=== PATIENT | female | born 1955 | race Caucasian/White ===

== ENCOUNTER 2022-03-20 16:07 | Inpatient (IN) | payer MEDICARE, MEDICAID ==
[~2022-03-20] VITALS: Ht 152.4 cm; Wt 61.1 kg
[2022-03-20] MEDS ORDERED: mag hydrox/Alum hydrox/simeth 30ml oral suspension PO PRN (16:45)
[2022-03-20] MEDS ORDERED: acetaminophen 325mg tablet PO PRN (16:45)
[2022-03-20] MEDS ORDERED: loperamide 2mg capsule PO PRN (16:45)
--- NOTE | 2022-03-20 17:50 | NUR ---
Admit note: PT admitted today from [place] on a 5150 for DTO/GD at 1715. Pt is experiencing a UTI and was not seeking medical care. Client making grandiose statements and homicidal ideation. Pt has unknown mental health history but is on psych medications.
[2022-03-20] MEDS ORDERED: QUET-1 PO (19:30)
[2022-03-20] MEDS ORDERED: BUPR75TA96 PO (19:30)
[2022-03-20] MEDS ORDERED: TRAZ-256 PO (19:30)
[2022-03-20] MEDS ORDERED: RISP2TAB85 PO (19:30)
[2022-03-20] MEDS ORDERED: ALLO100T PO (19:30)
[2022-03-20] MEDS ORDERED: OLAN20TA3 PO (19:30)
[2022-03-20] MEDS ORDERED: LEVO100T PO (19:47)
[2022-03-20 20:00] VITALS: BP 117/55
[2022-03-20] MEDS ORDERED: quetiapine 100mg tablet PO ONE (21:15)
[2022-03-20] MEDS ORDERED: traZODone 50mg tablet PO ONE (21:15)
[2022-03-20] MEDS ORDERED: risperiDONE 2mg tablet PO ONE (21:15)
[2022-03-20] MEDS ORDERED: olanzapine 10mg tablet PO ONE ×2 (21:15→21:40)
[2022-03-20] MEDS ORDERED: BUPR-317 PO (21:22)
[2022-03-20 21:57] VITALS: BP 117/55
[2022-03-20] MEDS: acetaminophen 325mg tablet PO PRN (23:59)
--- NOTE | 2022-03-21 04:16 | NUR ---
Nursing Progress Note Problem: PT admitted today from [place] on a 5150 for DTO/GD at 1715. Pt is experiencing a UTI and was not seeking medical care. Client making grandiose statements and homicidal ideation. Pt has unknown mental health history but is on psych medications. Intervention: Maintained a safe and supportive environment, administered scheduled and PRN medications. Provided clear and simple instructions, encouraged going to group, provided active listening and positive encouragement, encouraged participation on the unit, provided redirection and clear boundaries. Response: PT presents with pressured speech and grandiose delusions. She claims to be Marlena and Kalani of [facility]. She states she talks to [employer] and lives in a haunted brothel. She is a very poor historian and denies any medical history aside from Bipolar d/o. She demands vegan tyler and anup cherries. She also tries to have staff do things like put pillows between her legs and make her bed and help her pull her pants up. RN refuses to do these things because pt is perfectly capable and encourages pt to be independent. Pt takes HS medications without issue. She approaches the nurses station frequently with requests and demands. PT needs to be reminded of boundaries and has to be told many times to return to her room late in the night. She becomes labile when she does not have her needs met. Plan: Pt. requires crisis stabilization. pt. continues to require a safe and supportive environment
[2022-03-21] MEDS ORDERED: buproprion 150mg XL (24-hour) tablet PO SCH (08:00)
[2022-03-21] MEDS: levoTHYROXINE 100mcg tablet PO SCH (08:03)
[2022-03-21] MEDS: buPROPion SR 150mg tablet PO SCH (08:03)
[2022-03-21] MEDS: allopurinol 100mg tablet PO SCH (08:03)
[2022-03-21 08:31] VITALS: BP 135/80
[2022-03-21 09:04] LABS: CHOL/HDL RATIO 2.2 (0.00-4.99); CHOLESTEROL 181 MG/DL (0-200); HDL CHOLESTEROL 82 MG/DL (35-60); LDL CHOLESTEROL 85 MG/DL (50-100); TRIGLYCERIDES 50 MG/DL (20-135)
[2022-03-21 09:34] LABS: HEMOGLOBIN A1C 5.5 % (4.5-6.2)
--- NOTE | 2022-03-21 11:47 | NUR ---
[id number]# [phone]
[2022-03-21] MEDS ORDERED: OLANZapine 5mg rapidly disint. tablet PO ONE ×2 (12:30→15:10)
--- NOTE | 2022-03-21 16:04 | NUR ---
Nursing Progress Note: Saritha Problem: PT admitted from [place] on a 5150 for DTO/GD. Pt is experiencing a UTI and was not seeking medical care. Client making grandiose statements and homicidal ideation. Pt has unknown mental health history but is on psych medications. Intervention: Medication given as ordered. Provided with a safe and therapeutic environment, clear communication, active listening and positive encouragement. Response: Patient is resting quietly in bed at the start of the shift. Cooperative with assessment and medication. Patients speech is disorganized and inappropriate. Appears to be oriented to self only. Responses to questions are inappropriate and often threatening. She states, Want me to kill myself? Ill kill myself. Ill fuck you up you mother fuckers. Patient spends most of the day in common areas. Takes a shower but requires encouragement to complete the task. She sits on the shower room toilet for a long period of time and presses the call light several times. When the shower call light is answered the patient swears at staff and states repeatedly, You want me to kill myself?! Plan: Patient continues to require crisis interruption and stabilization with medication management and monitoring in a safe and therapeutic environment.
[2022-03-21] MEDS: divalproex sodium 500mg tablet.DR PO SCH (17:12)
[2022-03-21] MEDS: haloperidol 5mg tablet PO SCH ×2 (17:13→20:29)
[2022-03-21 19:00] VITALS: BP 107/76
[2022-03-21] MEDS: LORazepam 1 MG tablet PO PRN (20:29)
[2022-03-21] MEDS: risperiDONE 2mg tablet PO SCH (20:29)
[2022-03-21] MEDS: acetaminophen 325mg tablet PO PRN (20:29)
[2022-03-21] MEDS: quetiapine 100mg tablet PO SCH (20:29)
[2022-03-21] MEDS: olanzapine 10mg tablet PO SCH (20:30)
[2022-03-21] MEDS: traZODone 50mg tablet PO SCH (20:30)
--- NOTE | 2022-03-21 21:13 | NUR ---
Nursing Progress Note: Saritha Problem: PT admitted from [place] on a 5150 for DTO/GD. Pt is experiencing a UTI and was not seeking medical care. Client making grandiose statements and homicidal ideation. Pt has unknown mental health history but is on psych medications. Intervention: Medication given as ordered. Provided with a safe and therapeutic environment, clear communication, active listening and positive encouragement. Response: Patient is walking the unit at the start of the shift. Cooperative with medications but is resistive to 1:1 assessment. She is tangential, hyper verbal and verbally abusive towards staff and peers. She is also noted talking to herself. She requires frequent redirection as she is intrusive and hyper verbal. She states, The staff here made me psychotic! and To say my life is shitty is an understatement! Im gonna fuck you all up mother fuckers! PRN Ativan is helpful for anxiety. PRN Tylenol given for c/o BLE pain with good effect. Patient spends time watching TV and socializing in the community room. Plan: Patient continues to require crisis interruption and stabilization with medication management and monitoring in a safe and therapeutic environment.
[2022-03-22] MEDS: haloperidol 5mg tablet PO SCH ×4 (02:00→20:22)
[2022-03-22 08:00] VITALS: BP 93/58
[2022-03-22] MEDS: allopurinol 100mg tablet PO SCH (08:30)
[2022-03-22] MEDS: divalproex sodium 500mg tablet.DR PO SCH ×3 (08:30→17:58)
[2022-03-22] MEDS: buPROPion SR 150mg tablet PO SCH (08:30)
[2022-03-22] MEDS: levoTHYROXINE 100mcg tablet PO SCH (08:30)
--- NOTE | 2022-03-22 17:52 | NUR ---
Nursing Progress Note Problem: PT admitted from [place] on a 5150 for DTO/GD. Pt is experiencing a UTI and was not seeking medical care. Client making grandiose statements and homicidal ideation. Pt has unknown mental health history but is on psych medications. Intervention: Medication given as ordered. Maintained a safe and supportive environment, administered scheduled and PRN medications. Provided clear and simple instructions, encouraged going to group, provided active listening and positive encouragement, encouraged participation on the unit, provided redirection and clear boundaries. Response: Received Pt in bed sleeping deeply w/o distress at the beginning of this shift. Pt woke for vitals and breakfast. AM assessments completed in community room where Pt stayed after breakfast. Pt ate meals well. She took AM meds w/o issue and also took a shower in AM. Pt often has pressured speech and speaks of hospital she was previously is as starving her; c/o gout and states she wants to shoot in penis then heart and then head. Pt presents as angry, anxious, needy and complaining, yet responds well to attention and stops complaining. Pt dressed in own clothes and well groomed. Plan: Patient continues to require crisis interruption and stabilization with medication management and monitoring in a safe and therapeutic environment.
[2022-03-22 19:00] VITALS: BP 120/71
[2022-03-22] MEDS: traZODone 50mg tablet PO SCH (20:22)
[2022-03-22] MEDS: risperiDONE 2mg tablet PO SCH (20:22)
[2022-03-22] MEDS: LORazepam 1 MG tablet PO PRN (20:22)
[2022-03-22] MEDS: olanzapine 10mg tablet PO SCH (20:22)
[2022-03-22] MEDS: quetiapine 100mg tablet PO SCH (20:22)
[2022-03-23] MEDS: haloperidol 5mg tablet PO SCH ×4 (02:00→21:01)
[2022-03-23] MEDS: LORazepam 1 MG tablet PO PRN ×2 (02:00→21:01)
--- NOTE | 2022-03-23 04:27 | NUR ---
Nursing Progress Note Problem: PT admitted from [place] on a 5150 for DTO/GD. Pt is experiencing a UTI and was not seeking medical care. Client making grandiose statements and homicidal ideation. Pt has unknown mental health history but is on psych medications. Intervention: Medication given as ordered. Maintained a safe and supportive environment, administered scheduled and PRN medications. Provided clear and simple instructions, encouraged going to group, provided active listening and positive encouragement, encouraged participation on the unit, provided redirection and clear boundaries. Response: Patient is labile throughout this shift; compliant with medication. She presented disorganized and delusional thought content. She made claims that she went to [place] with report writer, she has a "raging eye infection," and continued "staff is making me psychotic and I don't need any help with that." PRN Ativan provided x2 this shift. Patient was incontinent of urine while asleep; she was cleaned up with staff assistance and able to go back to sleep; does not appear to be having difficulty at this time. Plan: Patient continues to require crisis interruption and stabilization with medication management and monitoring in a safe and therapeutic environment.
[2022-03-23 08:00] VITALS: BP 111/57
[2022-03-23] MEDS: buPROPion SR 150mg tablet PO SCH (08:44)
[2022-03-23] MEDS: levoTHYROXINE 100mcg tablet PO SCH (08:44)
[2022-03-23] MEDS: allopurinol 100mg tablet PO SCH (08:44)
[2022-03-23] MEDS: divalproex sodium 500mg tablet.DR PO SCH (08:44)
--- NOTE | 2022-03-23 17:44 | NUR ---
Nursing Progress Note Problem: PT admitted from [place] on a 5150 for DTO/GD. Pt is experiencing a UTI and was not seeking medical care. Client making grandiose statements and homicidal ideation. Pt has unknown mental health history but is on psych medications. Intervention: Medication given as ordered. Maintained a safe and supportive environment, administered scheduled and PRN medications. Provided clear and simple instructions, encouraged going to group, provided active listening and positive encouragement, encouraged participation on the unit, provided redirection and clear boundaries. Response: Received Pt in bed sleeping deeply w/o distress at the beginning of this shift. Pt woke and was cooperative with vitals and AM assessments, and she ate meals well. Pt takes a long time to finish meals. She continues to ask for a FWW and is rude and vulgar when she doesnt get her way. Pt demanding and refused afternoon meds. Helped Pt position chair in room so she can put her feet up. She listened to headphones in afternoon. She remains demanding and argumentative. Pt makes statements about her functioning and things she will do and has done, that seem grandiose. Plan: Patient continues to require crisis interruption and stabilization with medication management and monitoring in a safe and therapeutic environment.
[2022-03-23] MEDS: divalproex sod 125mg sprinkle cap PO SCH (17:53)
[2022-03-23 19:00] VITALS: BP 152/79
[2022-03-23] MEDS: olanzapine 10mg tablet PO SCH (21:00)
[2022-03-23] MEDS: quetiapine 100mg tablet PO SCH (21:01)
[2022-03-23] MEDS: traZODone 50mg tablet PO SCH (21:01)
[2022-03-24] MEDS: haloperidol 5mg tablet PO SCH ×4 (03:00→20:17)
[2022-03-24] MEDS: LORazepam 1 MG tablet PO PRN ×2 (03:00→20:17)
--- NOTE | 2022-03-24 05:22 | NUR ---
Nursing Progress Note Problem: PT admitted from [place] on a 5150 for DTO/GD. Pt is experiencing a UTI and was not seeking medical care. Client making grandiose statements and homicidal ideation. Pt has unknown mental health history but is on psych medications. Intervention: Medication given as ordered. Maintained a safe and supportive environment, administered scheduled and PRN medications. Provided clear and simple instructions, encouraged going to group, provided active listening and positive encouragement, encouraged participation on the unit, provided redirection and clear boundaries. Response: Patient remains labile; compliant with medication. She continues to argue and demand when she is not getting her way. Patient continues to express delusional thought content. Her train of thought remains difficult to follow at times. Patient is insistent that she is "going to [facility] first thing in the morning" and refuses to accept that she is on a legal hold. Patient was social with peers and participated in HS snack prior to bed; observed having difficulty getting to sleep and continues to wake up often. She was incontinent while sleeping and claims to need a commode; again patient refused to listen to any reasoning. Plan: Patient continues to require crisis interruption and stabilization with medication management and monitoring in a safe and therapeutic environment.
--- NOTE | 2022-03-24 07:00 | NUR ---
PT. REFUSED VITAL SIGNS ASSESSMENT.
--- NOTE | 2022-03-24 07:27 | NUR ---
Initial: pt admitted w/ bipolar disorder per EMR. Currently on Regular diet w/ 100% intake of meals and participates in snacks per documentation, overall meeting needs at this time. LBM 03/21. No nutrition intervention implemented at this time, will continue to monitor. Recs: 1. Continue Regular diet as tolerated 2. Bowel care per rx 3. Weekly wts Addendum: 03/24/22 at [address] Amended: Links added.
[2022-03-24] MEDS: levoTHYROXINE 100mcg tablet PO SCH (07:57)
[2022-03-24] MEDS: allopurinol 100mg tablet PO SCH (07:57)
[2022-03-24] MEDS: divalproex sod 125mg sprinkle cap PO SCH ×3 (07:58→17:39)
[2022-03-24] MEDS: buPROPion SR 150mg tablet PO SCH (08:00)
[2022-03-24] MEDS: magnesium hydroxide 30ml (MOM) UD suspension PO PRN (09:49)
[2022-03-24] MEDS: acetaminophen 325mg tablet PO PRN (13:30)
--- NOTE | 2022-03-24 14:38 | NUR ---
[address] [place]
[2022-03-24] MEDS: ibuprofen tablet 400 MG TABLET PO PRN (16:04)
--- NOTE | 2022-03-24 17:25 | NUR ---
Nursing Progress Note Problem: PT admitted from [place] on a 5150 for DTO/GD. Pt is experiencing a UTI and was not seeking medical care. Client making grandiose statements and homicidal ideation. Pt has unknown mental health history but is on psych medications. Problems today: 1.Pt. is delusional, pt. states, Vidya been impregnated by a [employer] flatbed truck driver. Pt. believes she is a Buddhist goddess. Pt. states, I can bring the wrath and destruction upon you. 2.Pt. is irritable when she does not immediately get what she wants. Pt. presses the call light multiple times to request juice. When encouraged to drink water pt. states, No, water is boring. 3.Pt. c/o of bilateral LE pain and given Ibuprofen 800mg with moderate effect. Intervention: Medication given as ordered. Maintained a safe and supportive environment, administered scheduled and PRN medications. Provided clear and simple instructions, encouraged going to group, provided active listening and positive encouragement, encouraged participation on the unit, provided redirection and clear boundaries. RN received order for Motrin 800mg po q 6hr and medication administered. Pt. encouraged to shower. Response: RN received pt. asleep in bed at start of shift. Pt. awoke for breakfast and took all medications and ate all meals in the community room. 1:1 done at bedside, pt. is hyperverbal with pressured speech. Pt. is grandiose and tangential, talking at length about being a Buddhist goddess as well as believing she is . Pt. isolated to her room but came out to watch TV in the Rec Room intermittently. Ibuprofen and tylenol had moderate effect for bilateral LE pain. Pt. showered. Plan: Patient continues to require crisis interruption and stabilization with medication management and monitoring in a safe and therapeutic environment.
[2022-03-24 19:19] VITALS: BP 147/87
[2022-03-24] MEDS: polyethylene glycol 3350 17gm powd pack PO SCH (20:16)
[2022-03-24] MEDS: traZODone 50mg tablet PO SCH (20:17)
[2022-03-24] MEDS: quetiapine 100mg tablet PO SCH (20:17)
[2022-03-24] MEDS: olanzapine 10mg tablet PO SCH (20:17)
[2022-03-25] MEDS: haloperidol 5mg tablet PO SCH ×4 (03:11→20:37)
[2022-03-25] MEDS: LORazepam 1 MG tablet PO PRN ×2 (03:11→23:15)
[2022-03-25] MEDS: ibuprofen tablet 400 MG TABLET PO PRN ×3 (03:12→21:25)
--- NOTE | 2022-03-25 03:54 | NUR ---
Pt came up the nursing station and stated she needed a PRN for pain and needed her acyclovir, her nurse gave her Motrin for "all over" body pain, she has no acyclovir ordered, but she stated "When I get under stress I have herpes outbreaks! And I am under stress right now!" She also stated " I am burning all the way to my sacrum!" Will pass on to dayshift to notify MD of possible need for treatment.
--- NOTE | 2022-03-25 05:18 | NUR ---
Nursing Progress Note Problem: PT admitted from [place] on a 5150 for DTO/GD. Pt is experiencing a UTI and was not seeking medical care. Client making grandiose statements and homicidal ideation. Pt has unknown mental health history but is on psych medications. Intervention: Medication given as ordered. Maintained a safe and supportive environment, administered scheduled and PRN medications. Provided clear and simple instructions, encouraged going to group, provided active listening and positive encouragement, encouraged participation on the unit, provided redirection and clear boundaries. Response: Patient remains labile; compliant with medication. PRN Ativan and Motrin provided. Patient continues to express disorganized and delusional thought content. She was observed singing along to a game show with peers and participated in HS snack. Patient continues to appear having a difficulty getting to sleep and waking often. Plan: Patient continues to require crisis interruption and stabilization with medication management and monitoring in a safe and therapeutic environment.
[2022-03-25 07:30] VITALS: BP 116/64
[2022-03-25] MEDS: buPROPion SR 150mg tablet PO SCH (08:00)
[2022-03-25] MEDS: allopurinol 100mg tablet PO SCH (08:52)
[2022-03-25] MEDS: divalproex sod 125mg sprinkle cap PO SCH ×3 (08:52→17:48)
[2022-03-25] MEDS: levoTHYROXINE 100mcg tablet PO SCH (08:52)
[2022-03-25] MEDS: magnesium hydroxide 30ml (MOM) UD suspension PO PRN (10:46)
--- NOTE | 2022-03-25 17:40 | NUR ---
Nursing Progress Note: Problem: PT admitted from [place] on a 5150 for DTO/GD. Pt is experiencing a UTI and was not seeking medical care. Client making grandiose statements and homicidal ideation. Pt has unknown mental health history but is on psych medications. Problems today: 1.Pt. is delusional, pt. states, Im . 3.Pt. c/o of bilateral LE pain and given Ibuprofen 800mg with moderate effect. Intervention: Medication given as ordered. Maintained a safe and supportive environment, administered scheduled and PRN medications. Provided clear and simple instructions, encouraged going to group, provided active listening and positive encouragement, encouraged participation on the unit, provided redirection and clear boundaries. RN received order for Motrin 800mg po q 6hr and medication administered. Response: RN received pt. asleep in bed at start of shift. Pt. awoke for breakfast and took all medications and ate all meals in the community room. Pt. observed eating peas with her fingers, RN encouraged pt. to use her spoon, pt. states, Ill eat how I want to eat. Pt. leaves mess on the table and does not clean it up. 1:1 done at bedside, pt. is hyperverbal with pressured speech, states, I dont need to be here. Pt. becomes tangential, talking about using healing mas of thinking to heal herself. Pt. received Ibuprofen 800mg with good effect for bilateral LE pain. Pt. napped approx 1.5 hrs in the afternoon. Pt. changed her clothes, brushed her teeth, and washed her face in her bathroom. Pt. had less outbursts today. Plan: Patient continues to require crisis interruption and stabilization with medication management and monitoring in a safe and therapeutic environment.
[2022-03-25 19:17] VITALS: BP 132/62
[2022-03-25] MEDS: olanzapine 10mg tablet PO SCH (20:37)
[2022-03-25] MEDS: traZODone 50mg tablet PO SCH (20:37)
[2022-03-25] MEDS: polyethylene glycol 3350 17gm powd pack PO SCH (20:37)
[2022-03-26] MEDS: haloperidol 5mg tablet PO SCH ×4 (02:21→20:27)
--- NOTE | 2022-03-26 04:45 | NUR ---
Nursing Progress Note Problem: PT admitted from [place] on a 5150 for DTO/GD. Pt is experiencing a UTI and was not seeking medical care. Client making grandiose statements and homicidal ideation. Pt has unknown mental health history but is on psych medications. Intervention: Medication given as ordered. Maintained a safe and supportive environment, administered scheduled and PRN medications. Provided clear and simple instructions, encouraged going to group, provided active listening and positive encouragement, encouraged participation on the unit, provided redirection and clear boundaries. Response: Patient continues to present lability and disorganized delusions. She is compliant with medication. PRN Ativan and Motrin provided this shift. Patient c/o increased gout pain throughout the shift. She participated in HS snack and observed watching TV with peer prior to bed. Shortly after retiring to bed she was yelling non stop in her room and was moved closer to the nurse's station and into a medical bed. Patient observed having difficulty getting to sleep and constantly waking; she was on the call light frequently requesting help with drinking water. Stated, "I need to flush all the toxins out of my body." Plan: Patient continues to require crisis interruption and stabilization with medication management and monitoring in a safe and therapeutic environment.
[2022-03-26] MEDS: allopurinol 100mg tablet PO SCH (07:27)
[2022-03-26] MEDS: buPROPion SR 150mg tablet PO SCH (07:27)
[2022-03-26] MEDS: levoTHYROXINE 100mcg tablet PO SCH (07:27)
[2022-03-26] MEDS: divalproex sod 125mg sprinkle cap PO SCH ×3 (07:32→17:48)
[2022-03-26 07:37] VITALS: BP 111/60
[2022-03-26 07:41] LABS: BASOPHILS # (AUTO) 0.1 X10'3 (0-0.2); EOSINOPHILS # (AUTO) 0.1 X10'3 (0-0.9); EOSINOPHILS % (AUTO) 1.9 % (0-6); HEMATOCRIT 33.2 % (35.0-45.0); HEMOGLOBIN 11.1 g/dl (12.0-16.0); LYMPHOCYTES # (AUTO) 2.7 X10'3 (1.1-4.8); LYMPHOCYTES % (AUTO) 49.4 % (21-51); MEAN CORPUSCULAR HEMOGLOBIN 32.3 PG (27.0-31.0); MEAN CORPUSCULAR HGB CONC 33.6 g/dL (33.0-36.5); MEAN CORPUSCULAR VOLUME 96.2 FL (78-98); MEAN PLATELET VOLUME 8.1 FL (7.4-10.4); MONOCYTES # (AUTO) 0.5 X10'3 (0-0.9); NEUTROPHILS # (AUTO) 2.1 X10'3 (1.8-7.7); NEUTROPHILS % (AUTO) 37.7 % (42-75); PLATELET COUNT 317 X10'3 (140-440); RED BLOOD COUNT 3.46 X10'6 (4.20-5.60); RED CELL DISTRIBUTION WIDTH 13.7 % (11.5-14.5); WHITE BLOOD COUNT 5.5 X10'3 (4.5-11.0)
[2022-03-26 07:48] LABS: ALANINE AMINOTRANSFERASE 27 U/L (12-78); ALBUMIN/GLOBULIN RATIO 0.8 (1.1-1.5); ALKALINE PHOSPHATASE 58 IU/L (46-116); ANION GAP 8 (8-16); ASPARTATE AMINO TRANSFERASE 22 U/L (10-37); BILIRUBIN,TOTAL 0.1 MG/DL (0.1-1.0); BLOOD UREA NITROGEN 20 MG/DL (7-18); BUN/CREATININE RATIO 27.8 (6.6-38.0); CALCIUM 8.7 MG/DL (8.5-10.1); CHLORIDE 103 MMOL/L (99-107); CREATININE 0.72 MG/DL (0.40-0.90); GLUCOSE 88 MG/DL (70-104); POTASSIUM 4.9 MMOL/L (3.5-5.1); SODIUM 138 MMOL/L (135-145); TOTAL CARBON DIOXIDE 26.9 MMOL/L (24-32); TOTAL PROTEIN 6.8 G/DL (6.4-8.2); eGFR 81 ML/MIN
[2022-03-26 07:59] LABS: VALPROATE 48 UG/ML (50-100)
[2022-03-26] MEDS: ibuprofen tablet 400 MG TABLET PO PRN (09:00)
--- NOTE | 2022-03-26 10:20 | NUR ---
Pt.'s TSH increased to 83.85. RN received order to increase Synthroid to 125mcg and retest in 6 weeks. (May 07, 2022).
--- NOTE | 2022-03-26 14:10 | NUR ---
Pt. c/o of continued constipation. RN received order for Colace 100mg BID with now dose. Pt. received and awaiting effect.
[2022-03-26] MEDS ORDERED: docusate sod 100mg capsule PO ONE (14:30)
--- NOTE | 2022-03-26 17:42 | NUR ---
Nursing Progress Note: Problem: PT admitted from [place] on a 5150 for DTO/GD. Pt is experiencing a UTI and was not seeking medical care. Client making grandiose statements and homicidal ideation. Pt has unknown mental health history but is on psych medications. Problems today: 1.Pt. is delusional, pt. states, Im . 2.Pt.'s TSH increased to 83.85. RN received order to increase Synthroid to 125mcg and retest in 6 weeks. (May 07, 2022). Intervention: Medication given as ordered. Maintained a safe and supportive environment, administered scheduled and PRN medications. Provided clear and simple instructions, encouraged going to group, provided active listening and positive encouragement, encouraged participation on the unit, provided redirection and clear boundaries. Pt. given Motrin 800mg po x1 for bilateral lower extremity pain. Response: RN received pt. asleep in bed at start of shift. Pt. awoke prior to breakfast and took all medications without issue. 1:1 done in Rec Room, pt. is hyperverbal and delusional, states, You know Im right?. Pt. is difficult to understand as she is tangential and mumbles. Pt. napped approx 2 hours during the day. Pt. brushed her teeth, and washed her face in her bathroom. Pt. had no episodes of acting out. Plan: Patient continues to require crisis interruption and stabilization with medication management and monitoring in a safe and therapeutic environment. Addendum: 03/26/22 at 1819 by Espinoza Germain RN Pt.'s swelling in left foot appears to be improving. Skin is less shiny. Addendum: 03/26/22 at 1820 by Espinoza Germain RN CORRECTION: RIGHT foot swelling appears to be improving.
[2022-03-26 19:25] VITALS: BP 146/82
[2022-03-26 19:28] VITALS: BP 141/78
[2022-03-26 20:25] LABS: CLARITY,URINE CLEAR (Clear); GLUCOSE, URINE NEGATIVE (Neg); KETONES,URINE NEGATIVE (Neg); LEUKOCYTE ESTERASE ,URINE TRACE (Neg); NITRITES, URINE NEGATIVE (Neg); OCCULT BLOOD,URINE NEGATIVE (Neg); PH,URINE 6.5 (4.8-8.0); PROTEIN,URINE NEGATIVE (Neg); UROBILINOGEN,URINE 0.2 E.U/dL (0.2-1.0)
[2022-03-26] MEDS: polyethylene glycol 3350 17gm powd pack PO SCH (20:26)
[2022-03-26 20:27] LABS: COLOR,URINE Straw (Yellow); UA COLLECTION TYPE CLN CATCH MIDSTREAM
[2022-03-26] MEDS: olanzapine 10mg tablet PO SCH (20:27)
[2022-03-26] MEDS: docusate sod 100mg capsule PO SCH (20:27)
[2022-03-26] MEDS: traZODone 50mg tablet PO SCH (20:28)
[2022-03-26] MEDS: LORazepam 1 MG tablet PO PRN (20:28)
[2022-03-26 20:31] LABS: WBC,URINE 0-4 /HPF (0-4)
[2022-03-26 20:32] LABS: BACTERIA,URINE 1+ /HPF (Neg); RBC,URINE 0-2 /HPF (0-2); SQUAMOUS EPITHELIAL CELL,UR NONE SEEN /LPF (FEW)
[2022-03-27] MEDS: haloperidol 5mg tablet PO SCH ×4 (02:16→20:31)
--- NOTE | 2022-03-27 04:43 | NUR ---
Nursing Progress Note Problem: PT admitted from [place] on a 5150 for DTO/GD. Pt is experiencing a UTI and was not seeking medical care. Client making grandiose statements and homicidal ideation. Pt has unknown mental health history but is on psych medications. Intervention: Medication given as ordered. Maintained a safe and supportive environment, administered scheduled and PRN medications. Provided clear and simple instructions, encouraged going to group, provided active listening and positive encouragement, encouraged participation on the unit, provided redirection and clear boundaries. Response: Patient continues to present labile but some improvement noted; compliant with medication. PRN Ativan provided. Patient continues to express delusional and disorganized thoughts; she believes she is and does not accept reality orientation as she continues into the next delusion. UA as ordered this shift; while blurb writer was instructing patient it was apparent that she wiping fecal matter toward her vagina. Patient appears to have difficulty with the ROM required to wipe from the backside after a BM. A clean cath was received and a culture is indicated for trace Esterase and bacteria in her urine. Patient participated in HS snack prior to bed; Trazodone was increased to 200mg this shift and patient is observed sleeping with less interruption this shift. Plan: Patient continues to require crisis interruption and stabilization with medication management and monitoring in a safe and therapeutic environment.
[2022-03-27] MEDS: levoTHYROXINE 125mcg tablet PO SCH (07:22)
[2022-03-27] MEDS: docusate sod 100mg capsule PO SCH ×2 (07:40→20:31)
[2022-03-27] MEDS: divalproex sod 125mg sprinkle cap PO SCH ×3 (07:41→17:26)
[2022-03-27] MEDS: allopurinol 100mg tablet PO SCH (07:41)
[2022-03-27] MEDS: buPROPion SR 150mg tablet PO SCH ×2 (07:41→15:58)
[2022-03-27 08:12] VITALS: BP 126/79
--- NOTE | 2022-03-27 16:22 | NUR ---
Nursing Progress Note: Problem: PT admitted from [place] on a 5150 for DTO/GD. Pt is experiencing a UTI and was not seeking medical care. Client making grandiose statements and homicidal ideation. Pt has unknown mental health history but is on psych medications. Intervention: Medication given as ordered. Maintained a safe and supportive environment, administered scheduled and PRN medications. Provided clear and simple instructions, encouraged going to group, provided active listening and positive encouragement, encouraged participation on the unit, provided redirection and clear boundaries. Response: Patient observed sleeping at shift change. She soon woke up and was asking for facial cream and lip balm. She was happy with moisturizer. Patient has been calm and cooperative all day, and has been compliant with all medications. She remains delusional and makes grandiose statements that have no basis in reality. Patient napped on and off all day and watched tv in between. Plan: Patient continues to require crisis interruption and stabilization with medication management and monitoring in a safe and therapeutic environment.
[2022-03-27 19:39] VITALS: BP 144/75
[2022-03-27] MEDS: olanzapine 10mg tablet PO SCH (20:29)
[2022-03-27] MEDS: polyethylene glycol 3350 17gm powd pack PO SCH (20:29)
[2022-03-27] MEDS: LORazepam 1 MG tablet PO PRN (20:31)
[2022-03-27] MEDS: traZODone 50mg tablet PO SCH (20:31)
[2022-03-27] MEDS ORDERED: polyethylene glycol 3350 17gm powd pack PO SCH (21:00)
[2022-03-27] MEDS: ibuprofen tablet 400 MG TABLET PO PRN (23:56)
[2022-03-27] MEDS: olanzapine 10mg tablet PO PRN (23:56)
[2022-03-28] MEDS: haloperidol 5mg tablet PO SCH ×4 (02:15→20:26)
[2022-03-28] MEDS: LORazepam 1 MG tablet PO PRN ×2 (02:15→20:26)
--- NOTE | 2022-03-28 05:17 | NUR ---
Nursing Progress Note Problem: PT admitted from [place] on a 5150 for DTO/GD. Pt is experiencing a UTI and was not seeking medical care. Client making grandiose statements and homicidal ideation. Pt has unknown mental health history but is on psych medications. Intervention: Medication given as ordered. Maintained a safe and supportive environment, administered scheduled and PRN medications. Provided clear and simple instructions, encouraged going to group, provided active listening and positive encouragement, encouraged participation on the unit, provided redirection and clear boundaries. Response: Patient remains labile but mood appears to be slightly improving; compliant with medication. PRN Ativan, Zyprexa and Motrin provided. Patient continues to remain delusional and disorganized. She is social with peers and staff. Participated in HS snack prior to bed; observed sleeping and continues to wake up often waking up every 5-10 min. Plan: Patient continues to require crisis interruption and stabilization with medication management and monitoring in a safe and therapeutic environment.
[2022-03-28] MEDS: allopurinol 100mg tablet PO SCH (07:10)
[2022-03-28] MEDS: levoTHYROXINE 125mcg tablet PO SCH (07:11)
[2022-03-28] MEDS: buPROPion SR 150mg tablet PO SCH ×2 (07:11→14:10)
[2022-03-28] MEDS: docusate sod 100mg capsule PO SCH ×2 (07:11→20:26)
[2022-03-28] MEDS: divalproex sod 125mg sprinkle cap PO SCH ×3 (07:11→17:19)
[2022-03-28 08:16] VITALS: BP 100/67
[2022-03-28] MEDS: magnesium hydroxide 30ml (MOM) UD suspension PO PRN (12:11)
--- NOTE | 2022-03-28 16:09 | NUR ---
Nursing Progress Note: Problem: PT admitted from [place] on a 5150 for DTO/GD. Pt is experiencing a UTI and was not seeking medical care. Client making grandiose statements and homicidal ideation. Pt has unknown mental health history but is on psych medications. Intervention: Medication given as ordered. Maintained a safe and supportive environment, administered scheduled and PRN medications. Provided clear and simple instructions, encouraged going to group, provided active listening and positive encouragement, encouraged participation on the unit, provided redirection and clear boundaries. Response: Patient slept until breakfast. She got up and ambulated to the group room for food and morning meds. She takes all her medications during the day, but only complaint is that "Haldol makes me tired." Patient has been pretty quiet today and has not made any delusional grandiose statements. She had a shower early afternoon and spent at least a 1/2 hour in there. Patient was involved in a bingo game with her peers in afternoon. She watched movies the rest of time. Plan: Patient continues to require crisis interruption and stabilization with medication management and monitoring in a safe and therapeutic environment.
[2022-03-28 19:41] VITALS: BP 127/69
[2022-03-28] MEDS: traZODone 50mg tablet PO SCH (20:26)
[2022-03-28] MEDS: olanzapine 10mg tablet PO SCH (20:26)
[2022-03-28] MEDS: ibuprofen tablet 400 MG TABLET PO PRN (20:26)
[2022-03-28] MEDS: polyethylene glycol 3350 17gm powd pack PO SCH (20:41)
[2022-03-29] MEDS: LORazepam 1 MG tablet PO PRN ×2 (02:28→20:11)
[2022-03-29] MEDS: haloperidol 5mg tablet PO SCH ×4 (02:28→18:47)
[2022-03-29] MEDS: ibuprofen tablet 400 MG TABLET PO PRN ×2 (02:28→20:12)
--- NOTE | 2022-03-29 05:12 | NUR ---
Nursing Progress Note Problem: PT admitted from [place] on a 5150 for DTO/GD. Pt is experiencing a UTI and was not seeking medical care. Client making grandiose statements and homicidal ideation. Pt has unknown mental health history but is on psych medications. Intervention: Medication given as ordered. Maintained a safe and supportive environment, administered scheduled and PRN medications. Provided clear and simple instructions, encouraged going to group, provided active listening and positive encouragement, encouraged participation on the unit, provided redirection and clear boundaries. Response: Patient mostly pleasant (some lability observed) and cooperative with care; compliant with medication. PRN Ativan and Motrin provided. Patient continues to express disorganized and delusional thought content. She is social with peers and participated in HS snack prior to bed; observed sleeping. She continues to wake up often but more sleep obtained this shift. Plan: Patient continues to require crisis interruption and stabilization with medication management and monitoring in a safe and therapeutic environment.
[2022-03-29] MEDS: docusate sod 100mg capsule PO SCH ×2 (07:26→20:12)
[2022-03-29] MEDS: buPROPion SR 150mg tablet PO SCH ×2 (07:26→15:58)
[2022-03-29] MEDS: levoTHYROXINE 125mcg tablet PO SCH (07:26)
[2022-03-29] MEDS: allopurinol 100mg tablet PO SCH (07:26)
[2022-03-29] MEDS: divalproex sod 125mg sprinkle cap PO SCH ×2 (07:27→13:08)
[2022-03-29 08:00] VITALS: BP 117/68
[2022-03-29] MEDS ORDERED: PERFLUTREN PROTEIN-A MICROSPHR (Optison) 0.22 MG/ML 3ML VIAL IV ONE (15:30)
[2022-03-29] MEDS: magnesium hydroxide 30ml (MOM) UD suspension PO PRN (15:58)
--- NOTE | 2022-03-29 16:59 | NUR ---
Nursing Progress Note: Problem: PT admitted from [place] on a 5150 for DTO/GD. Pt is experiencing a UTI and was not seeking medical care. Client making grandiose statements and homicidal ideation. Pt has unknown mental health history but is on psych medications. Intervention: Medication given as ordered. Maintained a safe and supportive environment, administered scheduled and PRN medications. Provided clear and simple instructions, encouraged going to group, provided active listening and positive encouragement, encouraged participation on the unit, provided redirection and clear boundaries. Response: Patient up early today for coffee then breakfast. She sat in the rec room for a while watching short videos that were funny to her. Patient went back to bed and napped for a while. After getting up she spent some time in the group room with her peers. Patient has been c/o what she thinks is gout. Both of her feet are edematous and a little warm to touch. Right foot is worse than left. After showing Dr. Oakes, he became concerned, so Dr. Rosenberg came and looked at them. He has ordered labs PBNC, echo, uric acid, and Hydrochlorothiazide to lessen edema. Patient tolerated lab draw well. Plan: Patient continues to require crisis interruption and stabilization with medication management and monitoring in a safe and therapeutic environment.
[2022-03-29] MEDS: divalproex 250mg tablet, delayed-release PO SCH (18:47)
[2022-03-29 19:33] VITALS: BP 92/49
[2022-03-29] MEDS: traZODone 50mg tablet PO SCH (20:12)
[2022-03-29] MEDS: olanzapine 10mg tablet PO SCH (20:13)
[2022-03-30] MEDS: ibuprofen tablet 400 MG TABLET PO PRN (02:47)
[2022-03-30] MEDS: olanzapine 10mg tablet PO PRN (02:48)
--- NOTE | 2022-03-30 05:08 | NUR ---
Nursing Progress Note: Problem: PT admitted from [place] on a 5150 for DTO/GD. Pt is experiencing a UTI and was not seeking medical care. Client making grandiose statements and homicidal ideation. Pt has unknown mental health history but is on psych medications. Intervention: Medication given as ordered. Maintained a safe and supportive environment, administered scheduled and PRN medications. Provided clear and simple instructions, encouraged going to group, provided active listening and positive encouragement, encouraged participation on the unit, provided redirection and clear boundaries. Response: Patient is pleasant and cooperative (some lability observed); compliant with medication. PRN Ativan, Motrin and Zydis provided. Patient continues to express intense gout pain. Disorganized and delusional thought content expressed. Patient participated in HS snack prior to bed; observed sleeping and appears to be having less difficulty this shift. Plan: Patient continues to require crisis interruption and stabilization with medication management and monitoring in a safe and therapeutic environment.
[2022-03-30 07:30] VITALS: BP 115/70
[2022-03-30] MEDS: HYDROchlorothiazide 12.5mg capsule PO SCH (07:45)
[2022-03-30] MEDS: divalproex 250mg tablet, delayed-release PO SCH ×3 (07:45→17:24)
[2022-03-30] MEDS: haloperidol 5mg tablet PO SCH ×3 (07:46→17:24)
[2022-03-30] MEDS: allopurinol 100mg tablet PO SCH (07:46)
[2022-03-30] MEDS: docusate sod 100mg capsule PO SCH ×2 (07:46→20:28)
[2022-03-30] MEDS: levoTHYROXINE 125mcg tablet PO SCH (07:46)
[2022-03-30] MEDS: buPROPion SR 150mg tablet PO SCH ×2 (07:46→15:20)
--- NOTE | 2022-03-30 14:03 | NUR ---
Nursing Progress Note: Problem: PT admitted from [place] on a 5150 for DTO/GD. Pt is experiencing a UTI and was not seeking medical care. Client making grandiose statements and homicidal ideation. Pt has unknown mental health history but is on psych medications. Intervention: Medication given as ordered. Maintained a safe and supportive environment, administered scheduled and PRN medications. Provided clear and simple instructions, encouraged going to group, provided active listening and positive encouragement, encouraged participation on the unit, provided redirection and clear boundaries. Pt had echocardiogram. Response: Received patient sleeping at shift change, pt woke for breakfast was compliant with one on one assessment and medications. Pt sat in group room visiting with her peers most of the morning. She had an echocardiogram which was normal. No gout flare up. Dr Short feels it is r/t Ibuprofen use, will switch to Tylenol for pain and continue to follow. Pt took a short nap after lunch, then back to group room socializing appropriately with peers. Pt denies all psychotic symptoms. Pt states she used to want to hurt the meth user. The meth user being her ex-. Pt then went into a story about a support group she used to be in and they all turned on me. Plan: Pt still is not stable enough to care for herself. Pt has been med compliant and becoming less labile. Patient continues to require crisis interruption and stabilization with medication management.
[2022-03-30 19:29] VITALS: BP 95/59
[2022-03-30] MEDS ORDERED: acetaminophen 325mg tablet PO PRN (19:30)
[2022-03-30] MEDS: LORazepam 1 MG tablet PO PRN (20:27)
[2022-03-30] MEDS: traZODone 50mg tablet PO SCH (20:28)
[2022-03-30] MEDS: olanzapine 10mg tablet PO SCH (20:28)
[2022-03-31] MEDS: olanzapine 10mg tablet PO PRN ×2 (00:24→23:45)
--- NOTE | 2022-03-31 04:57 | NUR ---
Nursing Progress Note: Problem: PT admitted from [place] on a 5150 for DTO/GD. Pt is experiencing a UTI and was not seeking medical care. Client making grandiose statements and homicidal ideation. Pt has unknown mental health history but is on psych medications. Intervention: Medication given as ordered. Maintained a safe and supportive environment, administered scheduled and PRN medications. Provided clear and simple instructions, encouraged going to group, provided active listening and positive encouragement, encouraged participation on the unit, provided redirection and clear boundaries. Response: Patient is labile this shift; compliant with medication. PRN Tylenol, Ativan and Zyprexa provided. Expresses disorganized and delusional thoughts often. She c/o gout pain consistently but not compliant when technical proposal writer gets her legs propped for her. She is constantly up and down. Patient participated in HS snack prior to bed; observed sleeping and waking up often requesting water. Patient drank 800mL pitcher in one sitting and technical proposal writer offered styrofoam cups periodically after that. Patient continued to c/o feeling "parched" throughout the night. Plan: Patient continues to require crisis interruption and stabilization with medication management and monitoring in a safe and therapeutic environment.
[2022-03-31 07:24] LABS: ALBUMIN 3.3 G/DL (3.4-5.0); ANION GAP 7 (8-16); BLOOD UREA NITROGEN 23 MG/DL (7-18); BUN/CREATININE RATIO 28.8 (6.6-38.0); CHLORIDE 105 MMOL/L (99-107); GLUCOSE 87 MG/DL (70-104); POTASSIUM 4.6 MMOL/L (3.5-5.1); SODIUM 141 MMOL/L (135-145); TOTAL CARBON DIOXIDE 29.2 MMOL/L (24-32); eGFR 72 ML/MIN
[2022-03-31 07:47] VITALS: BP 102/60
[2022-03-31] MEDS: HYDROchlorothiazide 12.5mg capsule PO SCH (07:49)
[2022-03-31] MEDS: buPROPion SR 150mg tablet PO SCH ×2 (07:49→15:17)
[2022-03-31] MEDS: docusate sod 100mg capsule PO SCH ×2 (07:49→20:27)
[2022-03-31] MEDS: allopurinol 100mg tablet PO SCH (07:49)
[2022-03-31] MEDS: divalproex 250mg tablet, delayed-release PO SCH ×3 (07:49→18:14)
[2022-03-31] MEDS: levoTHYROXINE 125mcg tablet PO SCH (07:49)
[2022-03-31] MEDS: haloperidol 5mg tablet PO SCH ×3 (07:49→18:13)
--- NOTE | 2022-03-31 15:42 | NUR ---
Nursing Progress Note: Problem: PT admitted from [place] on a 5150 for DTO/GD. Pt is experiencing a UTI and was not seeking medical care. Client making grandiose statements and homicidal ideation. Pt has unknown mental health history but is on psych medications. Intervention: Medication given as ordered. Maintained a safe and supportive environment, administered scheduled and PRN medications. Provided clear and simple instructions, encouraged going to group, provided active listening and positive encouragement, encouraged participation on the unit, provided redirection and clear boundaries. Pt had echocardiogram. Response: Patient was awake sitting in her room at shift change. Pt was compliant with care and medication. Pt socializes and eats meals in group room. When asked if patient was thirsty, pt stated I need to stay hydrated. Pt r/t her edema to drinking water. Pt was educated on limiting her fluid intake. Pt has had two pitchers of water today and at least 5 cups. Pt was switched to Tylenol as hospitalist thought the Ibuprofen was causing some of the edema and pt placed on hydrochlorothiazide. Pt denies all psychotic symptoms saying I just want to go home. Pt had no outbursts today. Plan: Pts lability mood has improved and denies all psychotic symptoms. Dr. Abbott and SW are working on a safe discharge plan for patient.
--- NOTE | 2022-03-31 16:10 | NUR ---
DISCHARGE-TUES AT 11 AM Saritha is getting discharged tomorrow. [facility] will pick her up at 11 AM to transport her home. She has follow up scheduled with [facility]. HAI Whitmore
[2022-03-31] MEDS: acetaminophen 325mg tablet PO PRN (16:20)
[2022-03-31 19:53] VITALS: BP 118/63
[2022-03-31] MEDS: olanzapine 10mg tablet PO SCH (20:27)
[2022-03-31] MEDS: traZODone 50mg tablet PO SCH (20:28)
[2022-03-31] MEDS: LORazepam 1 MG tablet PO PRN (20:28)
--- NOTE | 2022-04-01 04:29 | NUR ---
Nursing Progress Note: Problem: PT admitted from [place] on a 5150 for DTO/GD. Pt is experiencing a UTI and was not seeking medical care. Client making grandiose statements and homicidal ideation. Pt has unknown mental health history but is on psych medications. Intervention: Medication given as ordered. Maintained a safe and supportive environment, administered scheduled and PRN medications. Provided clear and simple instructions, encouraged going to group, provided active listening and positive encouragement, encouraged participation on the unit, provided redirection and clear boundaries. Response: Patient is pleasant and cooperative with care; compliant with medication. PRN Zyprexa, Ativan and Tylenol provided this shift. She continues to express disorganized and delusional thought content. 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 I'm not psychotic." Patient participated in HS snack prior to bed; she was observed having difficulty getting to sleep but appears to be sleeping better than previous night. Plan: Patient continues to require crisis interruption and stabilization with medication management and monitoring in a safe and therapeutic environment.
--- NOTE | 2022-04-01 07:20 | NUR ---
Reassessment: Pt continues on Regular diet w/ 100% intake of meals and participates in snacks per documentation, overall meeting needs at this time. LBM 03/29 receiving PRN bowel care. No nutrition intervention implemented at this time, will continue to monitor. Recs: 1. Continue Regular diet as tolerated 2. Bowel care per rx 3. Weekly wts Addendum: 04/01/22 at [address] Amended: Links added.
[2022-04-01 07:29] VITALS: BP 108/65
[2022-04-01] MEDS: docusate sod 100mg capsule PO SCH (07:39)
[2022-04-01] MEDS: allopurinol 100mg tablet PO SCH (07:39)
[2022-04-01] MEDS: divalproex 250mg tablet, delayed-release PO SCH (07:39)
[2022-04-01] MEDS: HYDROchlorothiazide 12.5mg capsule PO SCH (07:39)
[2022-04-01] MEDS: haloperidol 5mg tablet PO SCH (07:39)
[2022-04-01] MEDS: buPROPion SR 150mg tablet PO SCH (07:39)
[2022-04-01] MEDS: levoTHYROXINE 125mcg tablet PO SCH (07:39)
[2022-04-01] MEDS ORDERED: DOCU100C40 PO (08:54)
[2022-04-01] MEDS ORDERED: ALLO100T25 PO (08:54)
[2022-04-01] MEDS ORDERED: BUPR-72 PO (08:54)
[2022-04-01] MEDS ORDERED: OLAN10TA73 PO (08:54)
[2022-04-01] MEDS ORDERED: HALO5TAB PO (08:54)
[2022-04-01] MEDS ORDERED: TRAZ-251 PO (08:54)
[2022-04-01] MEDS ORDERED: LEVO125T8 PO (08:54)
[2022-04-01] MEDS ORDERED: DIVA250T4 PO (08:54)
[2022-04-01] MEDS ORDERED: HYDR12.55 PO (08:55)
--- NOTE | 2022-04-01 11:20 | NUR ---
DISCHARGE NOTE: Patient was discharged from unit at 1010. Pt was A&Ox3. Pt was picked up by [facility] and transported to her residence in [place]. Pt left with all personal belongings. [facility] will be notified about pt's follow up appointments. 04/03 @ 0900 and 04/09 @ 1400 with Tonie Olson.
== END 2022-04-01 10:11 | disposition home or self-care (01) | DRG 885 ==
LOC: ADULT MH 18:16
PROVIDERS: ADMIT Psychiatry & Neurology Psychiatry; ATTEND Psychiatry & Neurology Psychiatry
DX: F31.2 Bipolar disorder, current episode manic severe with psychotic features (principal); R45.851 Suicidal ideations; R60.0 Localized edema; M10.9 Gout, unspecified; F17.200 Nicotine dependence, unspecified, uncomplicated; K59.00 Constipation, unspecified; F12.90 Cannabis use, unspecified, uncomplicated; M25.471 Effusion, right ankle; E03.9 Hypothyroidism, unspecified; Z79.890 Hormone replacement therapy; Z79.899 Other long term (current) drug therapy; Z91.14 Patient's other noncompliance with medication regimen
CPT/HCPCS: 36415; 80048; 80053; 80061; 80164; 81001; 83036; 83735; 83880; 84443; 84550; 85025; 87081; 87088; 93306